=== PATIENT | female | born 1960 | race African-American/Black ===

== ENCOUNTER → 2016-07-28 | Outpatient (CLI) | payer OTHER ==
[~2016-07-28] MED LIST: ADDERALL XR10 MG PO; ALBUTEROL17 GM INH; CLARITIN10 M2 PO; LIPITOR20 MG PO; METOPROLOL TAR25 MG; NEURONTIN100 MG PO; TRAMADOL HCL50 M2 PO; VOLTAREN75 MG PO
--- NOTE | ~2016-07-28 | BD1 ---
[facility] A Service of [facility] RADIOLOGY TEXT RESULTS PATIENT: LOCATION: [facility] : 62 UNIT #: [id number] AGE: [address]: Bradley Claire MD SEX: F ORDER DR: [id number] [facility] [address] [place], [place] [address] [id number] O MR#: [id number] Acc #: [id number] NAME: June. : 1960 SEX: F STUDY DATE/TIME: 07/28/2016 9:37 UNIT: [facility] ROOM: STUDY DESCRIPTION: BD Dexa Bone Dens 1+ Site Attending Physician: Bradley Claire M.D. Ordering Physician: Bradley Claire M.D. Primary Care Physician: Bradley Claire M.D. MEDICAL IMAGING REPORT This report is preliminary unless electronic signature is present EXAM DXA scan, 07/28/2016. HISTORY Status post menopause with no hormone replacement therapy. Osteopenia. Hysterectomy at age 40 with removal of both ovaries. Hypertension with blood pressure medication for 1 year. FINDINGS Bone mineral density in the lumbar spine from L1-L4 is 0.892 g/cm2 which is 1.4 standard deviations below the mean when compared to the young adult reference population which is characteristic of osteopenia. This is 1.2 standard deviations below the mean when compared to the age-matched population. Bone mineral density in the left femoral neck was 0.659 g/cm2 which is 1.7 standard deviations below the mean when compared to the young adult reference population which is characteristic of osteopenia. This is 1.3 standard deviations below the mean when compared to the age-matched population. IMPRESSION Bone mineral density in the lumbar spine and left hip characteristic of osteopenia. Dictated by... Hank Conde M.D. THIS IS AN ELECTRONICALLY VERIFIED REPORT Hank Conde M.D. at 07/29/2016 7:46 AM KRT/tmw [facility] A Service of [facility] RADIOLOGY TEXT RESULTS PATIENT: LAKESHA [id number] : 62 UNIT #: [id number] AGE: [address]: Bradley Claire MD SEX: F ORDER DR: TD: 07/28/2016 12:46 JOB #: [id number] MEDICAL IMAGING REPORT Page 1 of 1 COPY
== END | disposition home or self-care (01) ==
LOC: CWCC 09:10
DX: Z13.820 Encounter for screening for osteoporosis (principal); M85.89 Other specified disorders of bone density and structure, multiple sites; Z78.0 Asymptomatic menopausal state
CPT/HCPCS: 77080